=== PATIENT | male | born 1960 | race Caucasian/White ===

== ENCOUNTER → 2019-07-09 | Outpatient (CLI) | payer BC | LOC: GMAE 10:47 | PROVIDERS: ATTEND Family Medicine | DX: Z00.00 Encounter for general adult medical examination without abnormal findings (principal) ==

== ENCOUNTER 2019-08-23 05:49 | Day surgery (SDC) | payer BC ==
[2019-08-23] MEDS ORDERED: LACTATED RINGERS 1,000 ML ONE (06:55)
[2019-08-23] MEDS ORDERED: PROPOFOL 200 MG/20 ML VIAL IV ONE (07:00)
[2019-08-23] MEDS ORDERED: LIDOCAINE 1% 10 ML VIAL INJ ONE (07:00)
[2019-08-23] MEDS ORDERED: LACTATED RINGERS 1,000 ML IVS ONE (07:10)
[2019-08-23] MEDS ORDERED: KETAMINE HCL 100 MG/ML VIAL ONE (07:52)
--- NOTE | 2019-08-23 09:01 | OP ---
DATE OF PROCEDURE: 08/23/19 PREOPERATIVE DIAGNOSIS: 1. Screening colonoscopy. POSTOPERATIVE DIAGNOSIS: 1. Colonic polyp. PROCEDURE: 1. Colonoscopy with polyp biopsies times 1 and snare excision times 1. SURGEON: Earnest Penn MD INDICATION: As stated. PROCEDURE: IV general anesthesia was induced in the lateral position. Digital rectal exam was normal. The colonoscope was inserted without difficulty and proceeded to the cecum as identified by the ileocecal valve and appendiceal orifice. Upon withdrawal, one small polyp was seen between 20 and 25 cm. This was taken with the forceps. Upon further withdrawal, a larger polyp, probably 1.5 cm, was seen at about 20 cm, possibly between 15 and 20 cm. This was excised with the snare. The base beyond it appeared a little bit edematous, uncertain if it is part of the polyp as it was well defined and excised. We will wait and see what the margin on path shows. There was no bleeding at the biopsy site. The scope was withdrawn. The rectum was also normal. Otherwise, the remainder of the colon was normal with no mucosal abnormalities or other polyps seen. He tolerated the procedure and was taken to Recovery to be discharged. He will followup next week with path results. #[id number] [facility]
[2019-08-23 09:39] VITALS: BP 140/97; TEMP 97; O2SAT 97
== END 2019-08-23 09:38 | disposition home or self-care (01) ==
LOC: AMB 05:49
PROVIDERS: ATTEND Surgery
DX: Z12.11 Encounter for screening for malignant neoplasm of colon (principal); D12.6 Benign neoplasm of colon, unspecified; I10 Essential (primary) hypertension; F17.200 Nicotine dependence, unspecified, uncomplicated; R51 Headache; Z79.899 Other long term (current) drug therapy
CPT/HCPCS: 00812; 36416; 45380; 45385; 82948; J3490; J7120

== ENCOUNTER → 2020-08-14 | Outpatient (CLI) | payer OTHER | LOC: GMAE 12:48 | PROVIDERS: ATTEND Family Medicine | DX: Z00.00 Encounter for general adult medical examination without abnormal findings (principal) ==